=== PATIENT | male | born 1955 | race Caucasian/White ===

== ENCOUNTER 2019-09-18 17:11 | Emergency (ER) | payer MEDICARE, OTHER ==
--- NOTE | 2019-09-18 17:30 | Emergency Department Record ---
History of Present Illness - General Stated Complaint: LAC RT MIDDLE FINGER Time Seen by Provider: 09/18/19 17:19 Source: Patient Mode of Arrival: Ambulatory Limitations: No limitations - History of Present Illness Initial Comments: 64 yo male presents to ED for evaluation following finger laceration to the tip of the right middle digit approximately 1 hour ago. Patient reports that he went to a [facility], was told that he needed to come to the ED for evaluation and radiographs. Patient denies use of anticoagulation medications, denies other injury on examination, and reports that his tetanus is UTD. Complaint: Injury to:: Right, Finger Onset/Timin -: Hour(s) Other Extremity Injury: Fingers: Right Other Injuries: None Handedness: Right Place: Home Context: Other Associated Symptoms: Denies other symptoms Treatments Prior to Arrival: Bandage - Related Data Previous Rx's Medication Instructions Recorded Doxycycline Hyclate 100 mg PO BID #20 cap 09/18/19 Allergies Allergy/AdvReac Type Severity Reaction Status Date / Time No Known Drug Allergies Allergy Verified 09/18/19 17:29 Review of Systems Constitutional: Denies: Chills, Fever, Malaise, Night sweats Eyes: Denies: Eye discharge, Eye pain ENT: Denies: Congestion, Ear pain, Epistaxis Respiratory: Denies: Cough, Dyspnea Cardiovascular: Denies: Chest pain, Dyspnea on exertion Endocrine: Denies: Fatigue, Heat or cold intolerance Gastrointestinal: Denies: Abdominal pain, Nausea, Vomiting Genitourinary: Denies: Incontinence, Retention Musculoskeletal: Denies: Arthralgia, Back pain Skin: Reports: Other (finger laceration). Denies: Bruising, Change in color Neurological: Denies: Abnormal gait, Confusion, Headache, Tingling, Tremors Psychiatric: Denies: Anxiety Hematological/Lymphatic: Denies: Anemia, Blood Clots Physical Exam - General General Appearance: Alert, Oriented x3, Cooperative, Mild distress Limitations: No limitations - Head Head exam: Atraumatic, Normocephalic, Normal inspection Head exam detail: negative: Abrasion, Contusion, Patel's sign, General tenderness, Hematoma, Laceration - Eye Eye exam: Normal appearance. negative: Conjunctival injection, Periorbital swelling, Periorbital tenderness, Scleral icterus - ENT Ear exam: negative: Auricular hematoma, Auricular trauma Nasal Exam: negative: Active bleeding, Discharge, Dried blood, Foreign body Mouth exam: negative: Drooling, Laceration, Muffled voice, Tongue elevation - Neck Neck exam: Normal inspection. negative: Meningismus, Tenderness - Respiratory Respiratory exam: Normal lung sounds bilaterally. negative: Respiratory distress, Rhonchi, Stridor, Wheezes - Cardiovascular Cardiovascular Exam: Regular rate, Normal rhythm, Normal heart sounds - GI/Abdominal GI/Abdominal exam: Soft. negative: Distended, Rebound, Rigid, Tenderness - Rectal Rectal exam: Deferred - exam: Deferred - Extremities Extremities exam: Tenderness, Other (Tissu loss and lacerated tissue involving the right middle digit tuft and distal 1/3 finger nail. Flexion/extension are intact at the DIP and PIP on examination.). negative: Calf tenderness, Pedal edema - Back Back exam: Denies: CVA tenderness (R), CVA tenderness (L) - Neurological Neurological exam: Alert, Normal gait, Oriented X3 - Psychiatric Psychiatric exam: Normal affect, Normal mood - Skin Skin exam: Normal color. negative: Abrasion Type of lesion: negative: abrasion Course - Reevaluation(s) Reevaluation #1: 09/18/19 17:35 Patient was seen and examined. Due to the amount of tissue loss sustained from injury with a router, patient's wound cannot be closed primarily. Will obtain radiographs to evaluate for fracture, FB, and apply wound dressing to the finger tip. Will initiate treatment with Doxycycline from the ED as well. Patient's tetanus is currently UTD. Reevaluation #2: 09/18/19 18:00 Right middle finger: No fracture, no FB identified Patient was updated on all results, will irrigate wound and initiate Doxycycline as discussed. Patient appears stable for discharge at this time. Disposition Disposition: Discharge Clinical Impression: Finger laceration Qualifiers: Encounter type: initial encounter Finger: middle finger Damage to nail status: with damage Foreign body presence: without foreign body Laterality: right Qualified Code(s): S61.312A - Laceration without foreign body of right middle finger with damage to nail, initial encounter Disposition: Home, Self-Care Condition: (2) Stable Instructions: Finger Laceration (ED) Additional Instructions: Return to ED if your symptoms worsen or if you have any concerns. Doxycycline as directed. Follow-up with Dr. Kinney in 3-5 days as directed. Prescriptions: Doxycycline Hyclate 100 mg PO BID #20 cap Referrals: CHRISTOPHER KINNEY [[email or web address]] - Time of Disposition: 18:02 Quality - Quality Measures Quality Measures: N/A - Blood Pressure Screening Does Patient Have Any of the Following: No Blood Pressure Classification: Hypertensive Reading Systolic Measurement: 151 Diastolic Measurement: 97 Screening for High Blood Pressure: < First Hypertensive BP, F/U Documented > [[id number]] First Hypertensive Follow-up Interventions: Referral to alternative/primary care provider.
[2019-09-18] MEDS ORDERED: DOXYCYCLINE HYCLATE 100 MG CAPSULE PO ONE (18:00)
--- NOTE | 2019-09-18 18:06 | RADIOLOGY REPORT ---
EXAMINATION: Right Thumb, Minimum Two Views EXAM DATE: 09/18/2019 5:54 PM TECHNIQUE: PA, lateral, and oblique views INDICATION: laceration, tissue loss, exclude FB COMPARISON: None ENCOUNTER: Initial FINDINGS AND IMPRESSION: There is a laceration involving the tip of the middle finger. No radiopaque foreign body. No clearly acute osseous abnormality is seen. Mild IP joint degenerative changes. Dictated by: Dany Weiner MD on 09/18/2019 6:02 PM. .
== END 2019-09-18 18:50 | disposition home or self-care (01) ==
LOC: ER 17:11
DX: S61.312A Laceration without foreign body of right middle finger with damage to nail, initial encounter (principal); W31.2XXA Contact with powered woodworking and forming machines, initial encounter; Y92.009 Unspecified place in unspecified non-institutional (private) residence as the place of occurrence of the external cause
CPT/HCPCS: 73140; 99284